=== PATIENT | male | born 1980 | race Caucasian/White ===

== ENCOUNTER 2017-08-19 11:24 | Emergency (ER) | payer OTHER, SELFPAY ==
--- NOTE | 2017-08-19 11:25 | PC.NURSE ---
CALLED [facility]
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
[2017-08-19 11:27] VITALS: BP 180/110; PULSE 80; RESP 16; TEMP 36.8; O2SAT 98
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
--- NOTE | 2017-08-19 11:29 | XR_ITS ---
XR pelvis 1-2V HISTORY: Fall with injury and pain ITS.REASON: TRAUMA ALERT ORDERING PHYSICIAN: Ruma Quinones MD PATIENT AGE: 36 years COMPARISON: None FINDINGS: No fracture or dislocation is evident. No significant degenerative change. No lytic or blastic change. The SI joints have an unremarkable appearance. Unremarkable soft tissues. IMPRESSION: Negative pelvis.
--- NOTE | 2017-08-19 11:30 | PC.NURSE ---
[facility] ACCEPTED PATIENT
--- NOTE | 2017-08-19 11:45 | PC.NURSE ---
TRAUMA ALERT CALLED AT [id number] AND [facility] NOTIFIED
--- NOTE | 2017-08-19 11:46 | PC.NURSE ---
PT LEFT WITH [facility] AT 11:40
[2017-08-19 11:48] VITALS: BP 180/100; PULSE 98; RESP 16; TEMP 36.8; O2SAT 98
[2017-09-01 08:50] LABS: POC Glucose,Bedside 142 mg/dL
== END 2017-08-19 11:50 | disposition short-term general hospital (02) ==
PROVIDERS: Emergency Provider Emergency Medicine
DX: S06.9X1A Unspecified intracranial injury with loss of consciousness of 30 minutes or less, initial encounter (principal); S69.92XA Unspecified injury of left wrist, hand and finger(s), initial encounter; R40.2412 Glasgow coma scale score 13-15, at arrival to emergency department; W17.89XA Other fall from one level to another, initial encounter; Y93.89 Activity, other specified; Y92.71 Barn as the place of occurrence of the external cause
CPT/HCPCS: 71045; 72170; 82962; 99282; 99291